=== PATIENT | female | born 1985 | race Caucasian/White ===

== ENCOUNTER → 2017-05-28 | Outpatient (CLI) | payer BC ==
--- NOTE | 2017-05-28 09:57 | KCIC ---
Left breast ultrasound: Reason for examination: Left breast pain. Stopped lactating in December 2016. Left whole breast ultrasound including evaluation of all 4 quadrants and the retroareolar and axillary regions of the left breast was performed. There is some ductal ectasia in the retroareolar position. In the 3:00 position 7.5 cm from the nipple, there is a 1.9 x 0.3 x 0.9 cm focus of fibrocystic type change or ductal ectasia present. In the area of clinical concern at the 2:00 position, there is no discrete abnormality seen. No abnormal appearing lymph nodes are seen in the axilla. IMPRESSION: Benign-appearing fibrocystic type changes or ductal ectasia in the 3:00 position. No abnormality in the area of clinical concern at the 2:00 position. Recommend 6 month sonographic follow-up. BI-RADS Category 3: Probably Benign. "Our facility is accredited by the [employer] Mammography Program." This patient's information has been entered into a reminder system for the patient to be notified with the results of her examination and a target date for the next mammogram. Electronically signed by: Sienna Smiley MD (05/28/2017 9:54 AM) [id number]
== END | disposition home or self-care (01) ==
LOC: KCIC US 09:02
PROVIDERS: ATTEND Obstetrics & Gynecology
DX: N64.4 Mastodynia (principal)
CPT/HCPCS: 76641

== ENCOUNTER → 2017-11-08 | Outpatient (CLI) | payer BC | END | disposition home or self-care (01) | LOC: KCIC US 07:41 | DX: R92.8 Other abnormal and inconclusive findings on diagnostic imaging of breast (principal) | CPT/HCPCS: 76641 ==